=== PATIENT | female | born 2000 ===

== ENCOUNTER 2018-11-14 14:09 | Emergency (ER) | payer SELFPAY ==
[~2018-11-14] VITALS: Ht 170.2 cm; Wt 61.0 kg
[2018-11-14] MEDS ORDERED: normal saline 1000ML IV soln IV ONE (15:35)
[2018-11-14 15:38] LABS: BASOPHILS % (AUTO) 0.1 % (0-1); EOSINOPHILS % (AUTO) 0.1 % (0-6); HEMATOCRIT 43.7 % (35.0-45.0); LYMPHOCYTES # (AUTO) 0.6 X10'3 (1.1-4.8); LYMPHOCYTES % (AUTO) 5.6 % (21-51); MEAN CORPUSCULAR HEMOGLOBIN 31.4 PG (27.0-31.0); MEAN CORPUSCULAR HGB CONC 34.4 g/dL (33.0-36.5); MEAN CORPUSCULAR VOLUME 91.4 FL (78-98); MEAN PLATELET VOLUME 7.1 FL (7.4-10.4); MONOCYTES # (AUTO) 0.6 X10'3 (0-0.9); MONOCYTES % (AUTO) 6.2 % (2-12); NEUTROPHILS # (AUTO) 8.9 X10'3 (1.8-7.7); PLATELET COUNT 350 X10'3 (140-440); RED BLOOD COUNT 4.78 X10'6 (4.20-5.60); RED CELL DISTRIBUTION WIDTH 12.8 % (11.5-14.5); WHITE BLOOD COUNT 10.2 X10'3 (4.5-11.0)
[2018-11-14 15:51] LABS: INR 1.2 INR; PROTHROMBIN TIME 11.8 SECONDS (9.0-12.0)
[2018-11-14 15:54] LABS: ALANINE AMINOTRANSFERASE 21 U/L (12-78); ALBUMIN 3.8 G/DL (3.4-5.0); ALBUMIN/GLOBULIN RATIO 1.1 (1.1-1.5); ALKALINE PHOSPHATASE 60 IU/L (20-180); ANION GAP 7 (8-16); ASPARTATE AMINO TRANSFERASE 14 U/L (10-37); BILIRUBIN,TOTAL 0.7 MG/DL (0.1-1.0); BLOOD UREA NITROGEN 14 MG/DL (7-18); BUN/CREATININE RATIO 13.7 (6.6-38.0); CALCIUM 8.7 MG/DL (8.5-10.1); CHLORIDE 103 MMOL/L (99-107); CREATININE 1.02 MG/DL (0.40-0.90); GLUCOSE 122 MG/DL (70-104); LIPASE 81 U/L (73-393); POTASSIUM 3.5 MMOL/L (3.5-5.1); SODIUM 138 MMOL/L (135-145); TOTAL CARBON DIOXIDE 27.7 MMOL/L (24-32); TOTAL PROTEIN 7.4 G/DL (6.4-8.2); eGFR 69 ML/MIN
--- NOTE | 2018-11-14 17:34 | NUR ---
PT GIVEN URINE CUP AND AMBULATORY TO BATHROOM WITH STEADY GAIT TO PROVIDE SAMPLE PER ORDERS NOW. PT STATES USES VENTOLIN INHALER AT HOME AND STATES SHE FEELS LIKE SHE NEEDS A BREATHING TREATMENT, STEFANO CUMMINGS INFORMED.
[2018-11-14 17:45] LABS: D-DIMER 0.59 MG/L FEU (0-0.50)
[2018-11-14 17:59] LABS: CLARITY,URINE CLEAR (Clear); COLOR,URINE YELLOW (Yellow); GLUCOSE, URINE NEGATIVE (Neg); KETONES,URINE 15 mg/dl (Neg); LEUKOCYTE ESTERASE ,URINE NEGATIVE (Neg); NITRITES, URINE NEGATIVE (Neg); OCCULT BLOOD,URINE NEGATIVE (Neg); PROTEIN,URINE NEGATIVE (Neg); UROBILINOGEN,URINE 0.2 E.U/dL (0.2-1.0)
[2018-11-14 18:08] LABS: UA COLLECTION TYPE CLN CATCH MIDSTREAM
[2018-11-14] MEDS ORDERED: ondansetron/PF 4mg/2ml inj IV ONE (18:15)
[2018-11-14 18:30] LABS: URINE HCG NEGATIVE (NEG)
[2018-11-14] MEDS ORDERED: iohexol 300mg/ml 100ml inj. ONE (18:36)
[2018-11-14] MEDS ORDERED: iohexol 350MG/ML 100ml bottle IV ONE (18:37)
[2018-11-14] MEDS ORDERED: ONDA4TAB6 PO (20:19)
[2018-11-14 20:35] VITALS: BP 103/66
== END 2018-11-14 20:37 | disposition home or self-care (01) ==
LOC: ER 14:10
DX: R11.2 Nausea with vomiting, unspecified (principal); R50.9 Fever, unspecified; R10.30 Lower abdominal pain, unspecified; R42 Dizziness and giddiness; R22.43 Localized swelling, mass and lump, lower limb, bilateral; Z79.899 Other long term (current) drug therapy
CPT/HCPCS: 36415; 71046; 71275; 80053; 81003; 81025; 83605; 83690; 84145; 85025; 85379; 85610; 87040; 87502; 87503; 96361; 96374; 99284; J2405; J7030; Q9967